=== PATIENT | male | born 1975 | race Caucasian/White ===

== ENCOUNTER 2023-07-27 18:01 | Emergency (ER) | payer SELFPAY ==
[~2023-07-27] VITALS: Ht 185.4 cm; Wt 137.0 kg
[2023-07-27] MEDS ORDERED: NOREPINEPHRINE 8MG/250ML PMX 250 ML IV ONE (18:14)
[2023-07-27 18:45] VITALS: PULSE 94; RESP 16
[2023-07-27] MEDS ORDERED: MIDAZOLAM 100MG/100ML PMX 100 ML IV PRN (19:15)
[2023-07-27] MEDS ORDERED: PANTOPRAZOLE 80 MG in SODIUM CHLORIDE 0.9% 100 ML IV SCH (19:15)
[2023-07-27] MEDS ORDERED: OCTREOTIDE ACETATE 50 MCG/ML 1ML SUBCUT NR (19:15)
[2023-07-27] MEDS ORDERED: MIDAZOLAM HCL 100 MG in DEXT 5% WATER 80 ML IV ONE (19:15)
[2023-07-27] MEDS ORDERED: OCTREOTIDE ACETATE 50 MCG/ML 1ML IV NR (19:15)
[2023-07-27] MEDS ORDERED: FENTANYL CITRATE 2,500 MCG in SODIUM CHLORIDE 0.9% 200 ML IV PRN (19:15)
[2023-07-27] MEDS ORDERED: FENTANYL 2500MCG/250ML PMX 250 ML IV ONE (19:15)
[2023-07-27] MEDS ORDERED: PANTOPRAZOLE SODIUM 40 MG/VIAL IV ONE (19:15)
[2023-07-27] MEDS ORDERED: MIDAZOLAM HCL 2 MG/2 ML VIAL IV ONE ×2 (19:15→20:45)
[2023-07-27] MEDS ORDERED: CEFTRIAXONE 1GM PREMIX 50 ML IV ONE (19:15)
[2023-07-27 19:58] LABS: BASOPHILS % 0.5 % (0.0-2.0); DIFFERENTIAL COMMENT 0; EOSINOPHILS % 0.7 % (0.0-5.0); HEMATOCRIT. 36.9 % (42.0-52.0); HEMOGLOBIN. 11.4 g/dL (14.0-18.0); LYMPHOCYTES % 15.3 % (20.0-50.0); MEAN CORPUSCULAR HEMOGLOBIN 27.8 pg (28.0-32.0); MEAN CORPUSCULAR VOLUME 89.9 fL (80.0-94.0); MEAN PLATELET VOLUME 8.9 fl (7.4-10.4); MONOCYTES % 5.3 % (2.0-8.0); NEUTROPHILS % 78.2 % (40.0-76.0); PLATELET 98 x1000/uL (130-400); RED BLOOD CELL COUNT 4.11 mill/uL (4.7-6.1); RED CELL DISTRIBUTION WIDTH 20.1 % (11.6-14.6); WHITE BLOOD COUNT 26.3 x1000/uL (4.5-11.0)
[2023-07-27 20:16] LABS: ALANINE AMINOTRANSFERASE 368 IU/L (10-49); ALBUMIN 2.8 g/dL (3.2-4.8); ASPARTATE AMINOTRANSFERASE 348 IU/L (<34); BILIRUBIN TOTAL 1.3 mg/dL (0.1-1.0); CALCIUM 7.7 mg/dL (8.7-10.4); CARBON DIOXIDE 14 mEq/L (21-32); CHLORIDE 111 mEq/L (98-107); CREATININE 1.9 mg/dL (0.6-1.3); GLUCOSE 161 mg/dL (70-105); POTASSIUM 3.7 mEq/L (3.5-5.1); PROTEIN TOTAL 5.3 g/dL (6.0-8.3); SODIUM 144 mEq/L (136-145); UREA NITROGEN BLOOD 33 mg/dL (9-23)
[2023-07-27 20:20] LABS: INR 1.3; PROTHROMBIN TIME 13.4 sec (9.6-11.0)
[2023-07-27 20:33] LABS: TROPONIN I HIGH SENSITIVITY 823 ng/L (3.0-53)
[2023-07-27 20:40] VITALS: PULSE 80; RESP 21
[2023-07-27 21:00] VITALS: O2SAT 98
[2023-07-27] MEDS ORDERED: PIPERACILLIN/TAZO 3.375G/50ML 50 ML IV SCH (22:00)
[2023-07-27] MEDS ORDERED: PANTOPRAZOLE SODIUM 40 MG/VIAL IV NR (22:00)
[2023-07-28 00:30] VITALS: PULSE 150; RESP 23
[2023-07-28] MEDS ORDERED: ONDANSETRON HCL 4MG/2ML INJ IV PRN (00:30)
[2023-07-28] MEDS ORDERED: VASOPRESSIN 20 UNIT in SODIUM CHLORIDE 0.9% 99 ML IV PRN ×2 (00:30→03:00)
[2023-07-28] MEDS ORDERED: CLONIDINE 0.1MG TABLET PO PRN (00:30)
[2023-07-28] MEDS ORDERED: MAGNESIUM/ALUMINUM HYDROXIDE/SIMETHICONE 30ML UDC PO PRN (00:30)
[2023-07-28] MEDS ORDERED: PHENYLEPHRINE 50 MG in DEXT 5% WATER 245 ML IV PRN (00:30)
[2023-07-28] MEDS ORDERED: ACETAMINOPHEN 325MG TABLET PO PRN ×2 (00:30)
[2023-07-28 00:36] LABS: HEMATOCRIT. 33.4 % (42.0-52.0); HEMOGLOBIN. 10.5 g/dL (14.0-18.0); MEAN CORPUSCULAR HEMOGLOBIN 27.7 pg (28.0-32.0); MEAN CORPUSCULAR HGB CONC 31.3 g/dL (31.0-37.0); MEAN CORPUSCULAR VOLUME 88.4 fL (80.0-94.0); PLATELET 93 x1000/uL (130-400); RED BLOOD CELL COUNT 3.78 mill/uL (4.7-6.1); RED CELL DISTRIBUTION WIDTH 19.1 % (11.6-14.6); WHITE BLOOD COUNT 26.3 x1000/uL (4.5-11.0)
[2023-07-28] MEDS: PHENYLEPHRINE 50MG/250ML PMX 250 ML IV PRN ×2 (00:39→04:34)
[2023-07-28] MEDS: PANTOPRAZOLE 80 MG in SODIUM CHLORIDE 0.9% 100 ML IV SCH ×2 (00:39→08:30)
[2023-07-28] MEDS ORDERED: SODIUM CHLORIDE 0.9% 1,000 ML IV ONE ×3 (00:45→06:00)
[2023-07-28] MEDS ORDERED: CEFTRIAXONE 1GM PREMIX 50 ML IV NR (00:45)
[2023-07-28 00:51] LABS: ALANINE AMINOTRANSFERASE 627 IU/L (10-49); ALBUMIN 2.4 g/dL (3.2-4.8); ASPARTATE AMINOTRANSFERASE 639 IU/L (<34); BILIRUBIN TOTAL 1.6 mg/dL (0.1-1.0); CALCIUM 7.5 mg/dL (8.7-10.4); CARBON DIOXIDE 17 mEq/L (21-32); CHLORIDE 112 mEq/L (98-107); CREATININE 2.4 mg/dL (0.6-1.3); DIFFERENTIAL COMMENT 1; GLUCOSE 84 mg/dL (70-105); PROTEIN TOTAL 4.7 g/dL (6.0-8.3); SODIUM 144 mEq/L (136-145); UREA NITROGEN BLOOD 42 mg/dL (9-23)
[2023-07-28] MEDS: SODIUM CHLORIDE 0.9% 1,000 ML IV SCH ×2 (01:41→08:41)
[2023-07-28 01:42] LABS: TROPONIN I HIGH SENSITIVITY 3443 ng/L (3.0-53)
[2023-07-28 01:53] LABS: IRON 40 ug/dL (65-175); LACTATE DEHYDROGENASE 1609 IU/L (120-246); TOTAL IRON BINDING CAPACITY 208 ug/dl (250-425)
[2023-07-28 02:00] LABS: ETHANOL BLOOD < 10 mg/dL (<10)
[2023-07-28 02:06] LABS: AMMONIA 112 uMol/L (<32)
[2023-07-28 02:21] LABS: FERRITIN 351 ng/mL (22-322); HEPATITIS A AB IGM NEGATIVE (Negative); HEPATITIS B CORE AB IGM NEGATIVE (Negative); HEPATITIS B SURFACE ANTIGEN NEGATIVE (Negative); HEPATITIS C AB NON REACTIVE (Neg) (Negative)
[2023-07-28] MEDS ORDERED: WATER IV NR (02:30)
[2023-07-28] MEDS ORDERED: DEXTROSE 5% IV NR (02:30)
[2023-07-28] MEDS ORDERED: VANCOMYCIN IV NR (02:30)
[2023-07-28] MEDS ORDERED: PIPERACILLIN/TAZO 3.375G/50ML 50 ML IV SCH ×2 (03:00→06:00)
[2023-07-28 04:40] VITALS: PULSE 144; RESP 33
[2023-07-28 05:49] LABS: NUCLEATED RED BLOOD CELLS 2 /100 WBC
[2023-07-28 05:50] LABS: PLATELET ESTIMATE DECREASED
[2023-07-28] MEDS ORDERED: ALBUMIN HUMAN 12.5GM/50ML (25%) IV NR (06:00)
[2023-07-28] MEDS ORDERED: LACTULOSE 20G/30ML UDC PO SCH (06:00)
[2023-07-28] MEDS ORDERED: NOREPINEPHRINE 8 MG in DEXT 5% WATER 242 ML IV PRN (06:00)
[2023-07-28] MEDS ORDERED: SODIUM BICARBONATE 8.4% 1 MEQ/ML 50ML SYR IV NR (06:00)
[2023-07-28] MEDS ORDERED: NOREPINEPHRINE 8MG/250ML PMX 250 ML IV PRN (06:15)
[2023-07-28] MEDS ORDERED: DOPAMINE 400MG/250ML PREMIX 250 ML IV PRN (07:30)
[2023-07-28 07:42] VITALS: BP 0/0; PULSE 0; RESP 0; TEMP 98.1
[2023-07-28] MEDS ORDERED: PANTOPRAZOLE SODIUM 40 MG/VIAL IV SCH (09:00)
[2023-07-29] MEDS ORDERED: VANCOMYCIN 1.25GM PMX (XELLIA) 250 ML IV SCH (03:00)
== END 2023-07-28 09:22 ==
LOC: ER 18:01 → EDBEDREQ 20:59 → EDBEDREQTM 20:59 → ER 07-28 09:22 → CANBEDREQ 07-29 04:17
DX: K92.2 Gastrointestinal hemorrhage, unspecified (principal); R41.82 Altered mental status, unspecified; I48.91 Unspecified atrial fibrillation; R79.89 Other specified abnormal findings of blood chemistry; I25.2 Old myocardial infarction
CPT/HCPCS: 80053 ×2; 82962; 83605 ×2; 83690 ×2; 85025 ×2; 85610; 86850; 86900; 86901; 86920; 84484 ×2; 36415 ×2; 71045; 93005 ×2; 94003; 31500; 96365; 96375; 96376; 99291; 80320; 82140; 82728; 83880; 83540; 83550; 83615; 87340; 87040; 86705; 86709; 84145; 76705; J2354; J3490 ×2; J2250 ×2; C9113; J2543; J7060 ×2; J7050 ×2; Z7610 ×3; J0696; J2370; J3370; J3010; P9016; P9047; G0480